=== PATIENT | male | born 1975 | race Caucasian/White ===

== ENCOUNTER 2024-07-01 12:32 | Emergency (ER) | payer MEDICAID ==
[~2024-07-01] VITALS: Ht 175.3 cm; Wt 95.5 kg
[2024-07-01 12:36] VITALS: BP 147/89; PULSE 84; RESP 18; TEMP 98.6; O2SAT 99
== END 2024-07-01 15:24 | disposition left against medical advice (07) ==
LOC: EMS 12:45
DX: F41.9 Anxiety disorder, unspecified (principal); Z53.21 Procedure and treatment not carried out due to patient leaving prior to being seen by health care provider